=== PATIENT | female | born 1965 | race Caucasian/White ===

== ENCOUNTER 2021-06-17 07:51 | Day surgery (SDC) | payer OTHER ==
[~2021-06-17] VITALS: Ht 165.1 cm; Wt 111.1 kg
[~2021-06-17 07:51] MED LIST: ADVIL PM1 CAP PO; AF-MIGRAIN1 PO; ASPIRIN81 MG PO; BEET ROOT PO; D32000 UNI1 PO; FARXIGA10 MG PO; FIORICET PO; HYDROCORTISONE2.5 % EX; KAPSPARGO SPRIN25 MG; LIPITOR10 M1 PO; LISINOPRIL20 MG PO; MAGNESIUM500 M3 PO; METOPROL TAR25 MG PO; MONTELUKAST SOD10 MG PO; MULTI 50+ PO; OMEGA 31000 MG PO; OMEPRAZOLE DR20 MG PO; TIZANIDINE2 MG PO; VITAMIN C500 MG PO; ZINC50 M1 PO; ZYRTEC10 MG PO; [UNRECOGNIZED DRUG - OTHER] PO; [UNRECOGNIZED DRUG - OTHER] PO; [UNRECOGNIZED DRUG - OTHER] PO
[2021-06-17 11:44] VITALS: BP 144/67
== END 2021-06-17 11:10 | disposition home or self-care (01) | DRG 395 ==
LOC: ENDO 07:51
PROVIDERS: ATTEND Surgery
PROC: 0DBN8ZX Excision of Sigmoid Colon, Via Natural or Artificial Opening Endoscopic, Diagnostic (ICD-10-PCS; principal; 2021-06-17)
DX: D12.5 Benign neoplasm of sigmoid colon (principal); I10 Essential (primary) hypertension; E11.9 Type 2 diabetes mellitus without complications; E78.5 Hyperlipidemia, unspecified